=== PATIENT | female | born 1990 | race Caucasian/White ===

== ENCOUNTER 2018-01-02 20:27 | Emergency (ER) | payer OTHER ==
[2018-01-02] MEDS ORDERED: Ibuprofen 800 MG Tab PO ONE (21:04)
[2018-01-02] MEDS ORDERED: Cyclobenzaprine 10 MG Tab PO ONE (21:07)
--- NOTE | 2018-01-02 22:23 | EDM.PDOC ---
ED HPI GENERAL MEDICAL PROBLEM - General Chief Complaint: Neck Problem Stated Complaint: NECK TIGHT AND PAINFULL Time Seen by Provider: 01/02/18 20:49 Source of Information: Reports: Patient History Limitations: Reports: No Limitations - History of Present Illness INITIAL COMMENTS - FREE TEXT/NARRATIVE: The patient is a 27-year-old female with a chief complaint of left-sided neck and chest pain. She states that she felt fine yesterday. When she woke up this morning she had some pain in her left neck. It seemed to get worse when she went to work. So she went to a chiropractor. She states that this afternoon she had some pain that was more in her left upper chest area and became concerned. No shortness of breath. Pain is slightly worse with movement. Neck pain is overall better, she still has some pain in the left neck area. She hasn't taken anything for pain today. No additional injury. No fever or recent illness. No cough or shortness of breath. No pain with arm movements. No numbness or tingling in the left arm. Neck Pain Score (Numeric/FACES): 4 - Related Data Allergies Allergy/AdvReac Type Severity Reaction Status Date / Time No Known Allergies Allergy Verified 01/02/18 20:36 Home Meds: Home Meds Cyclobenzaprine [Flexeril] 10 mg PO BID PRN #12 tab 01/02/18 [Rx] Ibuprofen 800 mg PO TID #40 tablet 01/02/18 [Rx] Past Medical History HEENT History: Reports: Impaired Vision - Past Surgical History Musculoskeletal Surgical History: Reports: Other (See Below) Other Musculoskeletal Surgeries/Procedures:: bilateral knee surgeries to repair tears Social & Family History - Tobacco Use Smoking Status *Q: Former Smoker Used Tobacco, but Quit: Yes Month/Year Tobacco Last Used: 6 months ago Second Hand Smoke Exposure: No - Caffeine Use Caffeine Use: Reports: Coffee - Recreational Drug Use Recreational Drug Use: No ED ROS GENERAL - Review of Systems Review Of Systems: See Below Constitutional: Denies: Fever Respiratory: Denies: Shortness of Breath Cardiovascular: Reports: Chest Pain GI/Abdominal: Reports: No Symptoms Musculoskeletal: Reports: Neck Pain Neurological: Denies: Paresthesia, Weakness ED EXAM, UPPER BACK/NECK PAIN - Physical Exam Exam: See Below Exam Limited By: No Limitations General Appearance: Alert, WD/WN, No Apparent Distress Eye Exam: Bilateral Eye: Normal Inspection Ears Exam: Normal External Exam Nose Exam: Normal Inspection Throat/Mouth Exam: Normal Inspection, Normal Voice, No Airway Compromise Head Exam: Atraumatic, Normocephalic Neck Exam: Full Range of Motion, Normal Alignment, Normal Inspection, Other ( Mild left neck soft tissue tenderness, diffuse, no crepitus, no palpable hematoma or other abnormality) Cardiovascular/Respiratory: Regular Rate, Rhythm, No M/R/G, Normal Peripheral Pulses, Normal Breath Sounds, No Respiratory Distress, Other (Mild left anterior chest wall tenderness, no skin changes, no crepitus, no deformity or bruising) GI/Abdominal: Soft, Non-Tender, No Distention Back Exam: Normal Inspection Extremities: Normal Inspection Neurologic: No Motor/Sensory Deficits, Alert, Normal Mood/Affect, Oriented x 3 Psychiatric: Normal Affect, Normal Mood Skin Exam: Normal Color, Warm/Dry Course - Vital Signs Last Recorded V/S: Last Vital Signs Temp 36.8 C 01/02/18 20:34 Pulse 85 01/02/18 20:34 Resp 18 01/02/18 20:34 BP 120/86 01/02/18 20:34 Pulse Ox 100 01/02/18 20:34 - Orders/Labs/Meds Orders: Active Orders 24 hr Category Date Time Status Chest 2V [CR] Stat Exams 01/02/18 21:04 Taken Meds: Medications Discontinued Medications Generic Name Dose Route Start Last Admin Trade Name Freq PRN Reason Stop Dose Admin Cyclobenzaprine HCl 10 mg 01/02/18 21:07 01/02/18 21:12 Flexeril PO 01/02/18 21:08 10 mg ONETIME ONE Administration Ibuprofen 800 mg 01/02/18 21:04 01/02/18 21:12 Motrin PO 01/02/18 21:05 800 mg ONETIME ONE Administration - Re-Assessments/Exams Free Text/Narrative Re-Assessment/Exam: 01/02/18 23:29 Chest x-ray shows normal cardiac silhouette, no pneumothorax, no acute abnormality. Patient felt better after ibuprofen. Suggest she follow up with primary care physician this week if she is not improving. Discussed return precautions. Departure - Departure Time of Disposition: 22:21 Disposition: Home, Self-Care 01 Clinical Impression: Neck pain Chest pain Qualifiers: Chest pain type: other chest pain Qualified Code(s): R07.89 - Other chest pain - Discharge Information Prescriptions: Cyclobenzaprine [Flexeril] 10 mg PO BID PRN #12 tab PRN Reason: Muscle Spasm Ibuprofen 800 mg PO TID #40 tablet Instructions: Muscle Pain, Adult Referrals: PCP,None [Primary Care Provider] - Forms: ED Department Discharge Additional Instructions: 1. Take ibuprofen as needed for pain 2. Use gentle heat on areas of pain 3. Take cyclobenzaprine as needed for muscle relaxation 4. Follow up with a primary care doctor as needed for further care. Call [phone] to schedule. 5. Return to the ED if you have severe pain, difficulty breathing, or other concerning symptoms. - My Orders Last 24 Hours: My Active Orders 01/02/18 21:04 Chest 2V [CR] Stat - Assessment/Plan Last 24 Hours: My Active Orders 01/02/18 21:04 Chest 2V [CR] Stat
--- NOTE | 2018-01-03 06:58 | CR ---
Chest: Two views of the chest were obtained. Comparison: No prior chest x-ray. Heart size and mediastinum are normal. Lungs are clear. Bony structures are within normal limits for the patient's age. Impression: 1. Nothing acute is seen on two-view chest x-ray. Diagnostic code #1
== END 2018-01-02 22:33 | disposition home or self-care (01) ==
LOC: JD.ED 20:27
DX: M54.2 Cervicalgia (principal); R07.89 Other chest pain; Z87.891 Personal history of nicotine dependence
CPT/HCPCS: 71046; 99284; A9270; 99283